=== PATIENT | female | born 2000 | race Caucasian/White ===

== ENCOUNTER 2024-03-09 17:18 | Emergency (ER) | payer MEDICAID, OTHER ==
[~2024-03-09] VITALS: Ht 160 cm; Wt 55.0 kg
[2024-03-09 17:23] VITALS: TEMP 36.9; O2SAT 100
[2024-03-09 18:30] VITALS: TEMP 98.4
[2024-03-09] MEDS: ACETAMINOPHEN 325MG TABLET PO ONE (18:30)
[2024-03-09] MEDS: KETOROLAC 30MG/ML VIAL IM ONE (18:30)
[2024-03-09 19:54] VITALS: BP 101/69; PULSE 87; RESP 16
[2024-03-09] MEDS: HYDROCODONE/ACETAMINOPHEN 5/325MG TABLET PO ONE (19:54)
== END 2024-03-09 21:19 | disposition home or self-care (01) ==
LOC: ER 17:18
DX: M25.561 Pain in right knee (principal)
CPT/HCPCS: 99283; 73562; 96372; J1885